=== PATIENT | female | born 1990 | race American Indian/Alaskan Native ===

== ENCOUNTER 2018-06-14 17:24 | Inpatient (IN) | payer OTHER ==
[~2018-06-14] VITALS: Ht 165.1 cm; Wt 85.3 kg
[2018-06-14] MEDS ORDERED: PRENATAL 19 TA1 EACH PO (17:45)
[2018-06-14] MEDS ORDERED: IROSPAN 24/6 T1 EACH PO (17:46)
== END 2018-06-16 08:08 | disposition home or self-care (01) | DRG 998 ==
LOC: OBS/DEL 17:24 → LDR 06-15 09:03
PROVIDERS: ADMIT Obstetrics & Gynecology
PROC: 4A1HXCZ Monitoring of Products of Conception, Cardiac Rate, External Approach (ICD-10-PCS; principal; 2018-06-15)
PROC: BY4CZZZ Ultrasonography of Second Trimester, Single Fetus (ICD-10-PCS; 2018-06-15)
DX: O76 Abnormality in fetal heart rate and rhythm complicating labor and delivery (principal); O60.03 Preterm labor without delivery, third trimester; Z34.03 Encounter for supervision of normal first pregnancy, third trimester

== ENCOUNTER 2018-07-29 14:45 | Inpatient (IN) | payer OTHER ==
[~2018-07-29] VITALS: Ht 165.1 cm; Wt 3.6 kg
[~2018-07-29 14:45] MED LIST: IROSPAN 24/6 T1 EACH PO; PRENATAL 19 TA1 EACH PO
== END 2018-08-20 14:44 | disposition home or self-care (01) | DRG 788 ==
LOC: LDR 08-16 06:27 → OB/GYN 08-17 14:45
PROVIDERS: ADMIT Obstetrics & Gynecology
PROC: 3E0P7VZ Introduction of Hormone into Female Reproductive, Via Natural or Artificial Opening (ICD-10-PCS; 2018-08-16)
PROC: 4A1HXCZ Monitoring of Products of Conception, Cardiac Rate, External Approach (ICD-10-PCS; 2018-08-16)
PROC: 3E033VJ Introduction of Other Hormone into Peripheral Vein, Percutaneous Approach (ICD-10-PCS; 2018-08-17)
PROC: 10D00Z1 Extraction of Products of Conception, Low, Open Approach (ICD-10-PCS; principal; 2018-08-17 12:00)
DX: O82 Encounter for cesarean delivery without indication (principal); O61.0 Failed medical induction of labor; Z3A.40 40 weeks gestation of pregnancy; Z37.0 Single live birth; Z22.330 Carrier of Group B streptococcus

== ENCOUNTER 2021-01-22 08:00 | Outpatient (CLI) | payer OTHER | END 2021-01-22 08:30 | disposition home or self-care (01) | LOC: PPH VACUNA 08:00 | PROVIDERS: ATTEND Emergency Medicine Pediatric Emergency Medicine | DX: Z23 Encounter for immunization (principal) ==

== ENCOUNTER 2021-10-09 15:01 | Outpatient (CLI) | payer OTHER | END 2021-10-09 15:07 | disposition home or self-care (01) | LOC: MAMO-SONO 15:01 | PROVIDERS: ATTEND Obstetrics & Gynecology | DX: N60.01 Solitary cyst of right breast (principal) ==

== ENCOUNTER 2021-12-30 08:00 | Outpatient (CLI) | payer OTHER | END 2021-12-30 08:05 | disposition home or self-care (01) | LOC: PPH VACUNA 08:00 | PROVIDERS: ATTEND Emergency Medicine Pediatric Emergency Medicine | DX: Z23 Encounter for immunization (principal) ==

== ENCOUNTER 2023-01-04 10:00 | Outpatient (CLI) | payer OTHER | END 2023-01-04 10:15 | disposition home or self-care (01) | LOC: PPH VACUNA 10:00 | PROVIDERS: ATTEND Emergency Medicine Pediatric Emergency Medicine | DX: Z23 Encounter for immunization (principal) ==

== ENCOUNTER 2024-01-27 09:40 | Outpatient (CLI) | payer OTHER | END 2024-01-27 09:50 | disposition home or self-care (01) | LOC: PPH VACUNA 09:40 | PROVIDERS: ATTEND Emergency Medicine Pediatric Emergency Medicine | DX: Z23 Encounter for immunization (principal) ==